=== PATIENT | male | born 1975 | race African-American/Black ===

== ENCOUNTER 2016-07-09 05:20 | Inpatient (IN) | payer OTHER ==
[2016-06-25 09:47] LABS: URINE BILIRUBIN NEGATIVE (Negative); URINE BLOOD TRACE (Negative); URINE COLOR YELLOW; URINE GLUCOSE-RANDOM* NEGATIVE (Negative); URINE KETONES NEGATIVE (Negative); URINE LEUKOCYTES-REFLEX NEGATIVE (Negative); URINE PROTEIN (DIPSTICK) NEGATIVE (Negative); URINE SPECIFIC GRAVITY 1.015 (1.003-1.035); URINE UROBILINOGEN 0.2 E.U./dl (0.2-1.0)
[2016-06-25 09:49] LABS: HEMATOCRIT 44.3 % (42.0-52.0); HEMOGLOBIN 14.9 gm/dL (14.0-18.0); MCH 28.8 pg (26.0-34.0); MCHC 33.6 g/dL (28.0-37.0); MCV 85.8 fL (80.0-100.0); RBC 5.16 mil/uL (4.50-6.00); RDW 14.1 % (10.5-14.5); WBC 5.6 thou/uL (4.0-11.0)
[2016-06-25 09:56] LABS: CALCIUM 9.6 mg/dL (8.5-10.1); CREATININE 0.9 mg/dL (0.7-1.3); POTASSIUM 4.3 mmol/L (3.5-5.1)
[2016-06-25 10:02] LABS: INR 1.1
[~2016-07-09] VITALS: Ht 185.4 cm; Wt 126.1 kg
[2016-07-09] VITALS (11 sets, daily range): BP systolic 113–146; BP diastolic 64–96
--- NOTE | ~2016-07-09 | H ---
[facility] [place] [address] HISTORY AND PHYSICAL Name: GAILBISMARK Román Room #: 540-P DIS IN M.R.#: [id number] Admission: 07/09/16 Attend Phys: Iam Edgar MD Discharge: 07/12/16 Date of : 71 Report #: [id number] THIS REPORT FOR: //name// For History and Physical, please see office documentation/handwritten note in the patient's medical record. <ELECTRONICALLY SIGNED> By: Iam Edgar MD 07/16/16 1131 0000 1122 Iam Edgar MD /HA
--- NOTE | ~2016-07-09 | HC ---
[facility] [place] [address] [place] [address] CONSULTATION Name: BISMRAK REYNOLDS Room #: 540-P [facility] IN M.R.#: [id number] Admission: 07/09/16 Attend Phys: Iam Edgar MD Discharge: 07/12/16 Date of : 71 Report #: [id number] THIS REPORT FOR: //name// CC: Florencio Edgar CONSULTING PHYSICIAN: Dr. Edgar. REASON FOR CONSULTATION: Medical management. HISTORY OF PRESENT ILLNESS: The patient is a 40-year-old man with history of arthritis, who underwent right total knee arthroplasty earlier today. He is recovering well. He is alert and awake. His pain is controlled. The patient does not have a significant medical history. He is on simvastatin for dyslipidemia as well as he takes flaxseed oil. He takes Nexium for heartburn. He considers this problem is well controlled. The patient does not have history of diabetes, hypertension, heart disease or other medical conditions. PAST MEDICAL HISTORY: 1. GERD. 2. Dyslipidemia. CURRENT MEDICATIONS: Reviewed and documented in the patient's chart. FAMILY HISTORY: Reviewed and not pertinent to the patient's current condition. SOCIAL HISTORY: The patient works at the [employer]. He does not smoke cigarettes and does not drink alcohol. REVIEW OF SYSTEMS: As above in HPI section, all other negative. As noted, the patient has mild postop pain, this is controlled. He does not have chest pains, denies shortness of breath, does not have blurry vision, headaches or any other symptoms. He is in good spirits. PHYSICAL EXAMINATION: GENERAL: The patient is a healthy looking young man who is in no apparent distress. VITAL SIGNS: Blood pressure is 146/93, heart rate is 85, respirations 19, temperature is 36.6. HEENT: Pupils are equal. Eye movements are normal. The patient has anicteric sclerae. NECK: Supple. He has no thyromegaly. JVD is not appreciated. CARDIOVASCULAR: The patient has regular rhythm and rate. He has no murmurs, gallops or rubs. RESPIRATORY: The patient has clear respiratory sounds bilaterally. Chest moves [facility] [address] [place] [address] CONSULTATION Name: BISMARK RYENOLDS Room #: 540-P [facility] IN M.R.#: [id number] Admission: 07/09/16 Attend Phys: Iam Edgar MD Discharge: 07/12/16 Date of : 71 Report #: [id number] symmetrically with breathing. GASTROINTESTINAL: Abdomen is soft, nondistended and nontender. Bowel sounds are present. He has no hepatomegaly or splenomegaly. MUSCULOSKELETAL: There is no edema, cyanosis or clubbing. Range of motion cannot be performed at the right knee. NEUROLOGIC: The patient is alert and oriented x 3. His examination is nonfocal. LABORATORY DATA: On June 25, during the preop evaluation, basic metabolic profile and CBC were completely normal. ASSESSMENT AND PLAN: 1. Status post right knee arthroplasty. Recovering well. Managed by primary team. 2. Gastroesophageal reflux disease, stable. PPI will be continued unchanged. 3. Dyslipidemia, reportedly controlled. The patient is already on simvastatin, that will be continued. 4. Deep venous thrombosis prophylaxis. The patient is started on Xarelto. We will continue to follow the patient during the hospitalization. Once again, thank you very much for allowing us to participate in the care of your patient. <ELECTRONICALLY SIGNED> By: James Horta MD 07/15/16 2227 [id number] James Horta MD /nt
--- NOTE | ~2016-07-09 | O ---
[facility] [address] [facility] [place] [address] OPERATIVE REPORT Name: BISMARK REYNOLDS Room #: 540-P ADM IN M.R.#: [id number] Admission: 07/09/16 Attend Phys: Iam Edgar MD Discharge: Date of : 71 Report #: [id number] THIS REPORT FOR: //name// CC: Dr. Jaquan Edgar DATE OF OPERATION: 07/09/2016. PREOPERATIVE DIAGNOSIS: Right knee degenerative joint disease, severe. POSTOPERATIVE DIAGNOSIS: Right knee degenerative joint disease, severe. PROCEDURE: Right total knee arthroplasty. SURGEON: Dr. Iam Edgar. TOWEL ROLLING MACHINE OPERATOR: Eugene Epsinoza, nurse practitioner. INDICATIONS FOR TOWEL ROLLING MACHINE OPERATOR: During the course of operation, extensive manipulation, retraction and limb positioning was required. This was afforded to me by my child nutrition assistant. ANESTHESIA: General. INDICATIONS: See hospital H and P. IMPLANTS UTILIZED: Used a DePuy PFC knee system. We used a cruciate retaining femoral component size 5 press fit. Size 4 tibial tray with a 15 mm insert and a 41 mm oval dome patella. DESCRIPTION OF PROCEDURE: After adequate general anesthesia had been obtained, the patient's right lower extremity was prepped and draped in the usual meticulous sterile fashion. Limb was exsanguinated with gravity, tourniquet inflated to 350 torr. Anterior midline incision was made, subQ divided sharply. Hemostasis obtained with electrocautery. Medial parapatellar incision was made. Infrapatellar fat pad excised. Medial release performed. Drill was used to drill the distal femur. This was enlarged, irrigated and suctioned and the intramedullary guide placed along full length of the femur. Distal femoral cutting guide pinned the appropriate height, distal femoral cut was made. Measuring device determined size 5 as appropriate size for this patient. We marked the distal femur, impacted the cutting guide into place and the anterior, posterior and chamfer cuts were made. Rongeur was used to remove additional osteophytes. At this time, the ACL was transected, tibia translated anteriorly and menisci [facility] [address] [place] [address] OPERATIVE REPORT Name: GAILBISMARK Román Room #: 540-P ADM IN M.R.#: [id number] Admission: 07/09/16 Attend Phys: Iam Edgar MD Discharge: Date of : 71 Report #: [id number] were excised. Drill was used to drill central portion of the tibia. This hole was enlarged, irrigated, suctioned, and the intramedullary guide placed the full length of the tibia. Proximal tibial cutting guide placed at appropriate height. Proximal tibia cut was made. 4 tray gave us the best coverage on the tibia. With trial components in position with a 15 spacer she had the best flexion and extension gap. Patella tracked normally. Patella was measured, cutting guide clamped into place, patellar cut was made. A 41 template gave us the best coverage. Pedicles were drilled, trial component put in position, it tracked normally. At this time, the knee was irrigated with both pulse lavage and antibiotic irrigation. Bone plugs were placed in the proximal tibia and distal femur. The cement was vacuum mixed and when it reached the appropriate consistency, the knee was thoroughly dried, the tibial tray was cemented into place. Excess cement was removed. The polyethylene was impacted in place and the femur impacted in place and the knee was taken out to 30 degrees of flexion with uniform compression placed across components. Patellar button was then cemented into place and again excess cement was removed. The knee was taken out to 30 degrees of flexion with uniform compression placed across components. Patellar and irrigation was allowed to rest in the wound while the cement fully cured. When it had done so, the knee was irrigated, dried thoroughly, inspected. Drains were placed superolaterally both deep and superficial. The retinacular layer closed with combination of interrupted [id number] #1 Vicryl as well as running #1 Tevdek. SubQ closed with 2-0 Monocryl, skin closed with maggie. Sterile compressive dressing applied. Tourniquet then deflated. <ELECTRONICALLY SIGNED> By: Iam Edgar MD 07/12/16 [id number] Iam Edgar MD /nt
[~2016-07-09 05:20] MED LIST: CELEBREX 200 M200 M1 PO; FLAX OIL1000 MG PO; NEXIUM40 MG PO; PRILOSEC 20 MG20 MG PO; SIMVASTATIN40 MG PO; VALACYCLOVIR1000 MG PO; ZOCOR20 MG PO
[2016-07-10 04:00] VITALS: BP 111/71
[2016-07-10 06:43] LABS: HEMATOCRIT 40.8 % (42.0-52.0); HEMOGLOBIN 13.4 gm/dL (14.0-18.0); MCH 28.3 pg (26.0-34.0); MCHC 32.8 g/dL (28.0-37.0); MCV 86.1 fL (80.0-100.0); PLATELET COUNT 201 thou/uL (150-400); RBC 4.74 mil/uL (4.50-6.00); WBC 11.7 thou/uL (4.0-11.0)
[2016-07-10 06:49] LABS: MANUAL DIFF YES
[2016-07-10 06:54] LABS: CALCIUM 8.6 mg/dL (8.5-10.1)
[2016-07-10 07:57] VITALS: BP 128/92
[2016-07-10 08:22] LABS: ABSOLUTE NEUTROPHILS 8.3 thou/uL (1.4-8.2); ATYPICAL LYMPHS 3 %; TOTAL CELL COUNT 100
[2016-07-10 15:37] VITALS: BP 121/77
[2016-07-10 20:00] VITALS: BP 140/91
[2016-07-11 04:55] VITALS: BP 152/84
[2016-07-11 06:36] LABS: HEMATOCRIT 40.2 % (42.0-52.0); HEMOGLOBIN 13.4 gm/dL (14.0-18.0); MCH 28.9 pg (26.0-34.0); MCHC 33.4 g/dL (28.0-37.0); MCV 86.6 fL (80.0-100.0); RBC 4.64 mil/uL (4.50-6.00); RDW 14.1 % (10.5-14.5); WBC 10.1 thou/uL (4.0-11.0)
[2016-07-11] MEDS ORDERED: XARELTO10 MG PO (07:06)
[2016-07-11] MEDS ORDERED: LORTAB 10-3251 EACH PO (07:06)
[2016-07-11 07:52] VITALS: BP 142/89
[2016-07-11 15:36] VITALS: BP 119/76
[2016-07-11 20:00] VITALS: BP 134/81
[2016-07-12 03:35] LABS: HEMATOCRIT 38.4 % (42.0-52.0); HEMOGLOBIN 12.8 gm/dL (14.0-18.0); MCH 28.6 pg (26.0-34.0); MCHC 33.2 g/dL (28.0-37.0); MCV 86.1 fL (80.0-100.0); RBC 4.46 mil/uL (4.50-6.00); RDW 13.8 % (10.5-14.5)
[2016-07-12 04:00] VITALS: BP 127/83
[2016-07-12 08:52] VITALS: BP 127/83
[2016-07-12 08:55] VITALS: BP 127/83
[2016-07-12 09:06] VITALS: BP 135/95
== END 2016-07-12 14:10 | disposition home health service (06) | DRG 470 ==
LOC: 5S 05:20 → TBA 05:20 → PRE 08:27 → 5S 10:14 → PRE 12:31 → 5S 07-12 14:10
PROVIDERS: Internal Medicine Endocrinology, Diabetes & Metabolism; Orthopaedic Surgery
PROC: 0SRC0JA Replacement of Right Knee Joint with Synthetic Substitute, Uncemented, Open Approach (ICD-10-PCS; principal; 2016-07-09)
DX: M17.11 Unilateral primary osteoarthritis, right knee (principal); E78.5 Hyperlipidemia, unspecified; K21.9 Gastro-esophageal reflux disease without esophagitis
CPT/HCPCS: 10086; 50010; 50101; 50415; 50612; 50954; 51130; 51225; 51320; 51412; 51771; 52001; 52282; 53000; 53078; 53364; 56525; 56527; 62110; 62900; 64042; 64043; 70005